=== PATIENT | male | born 1990 | race American Indian/Alaskan Native ===

== ENCOUNTER 2020-10-25 00:20 | Emergency (ER) | payer BC, OTHER ==
[~2020-10-25] VITALS: Ht 175.3 cm; Wt 117.9 kg
[2020-10-25 02:53] VITALS: BP 126/85
== END 2020-10-25 04:02 | disposition home or self-care (01) ==
LOC: ER 00:23
DX: H61.22 Impacted cerumen, left ear (principal)
CPT/HCPCS: 69209